=== PATIENT | female | born 2000 | race Caucasian/White ===

== ENCOUNTER 2021-05-04 18:09 | Emergency (ER) | payer OTHER ==
[2021-05-04 18:14] VITALS: BMI 20.5
[2021-05-04 19:05] VITALS: BP 97/53; PULSE 72; TEMP 98.1
== END 2021-05-04 20:00 | disposition home or self-care (01) ==
LOC: JER 18:09 → JERFT 18:09 → JER 20:00
DX: Z04.1 Encounter for examination and observation following transport accident (principal); V89.9XXA Person injured in unspecified vehicle accident, initial encounter; Y92.9 Unspecified place or not applicable
CPT/HCPCS: 99282-25

== ENCOUNTER 2021-08-26 13:38 | Emergency (ER) | payer OTHER ==
[2021-08-26 13:51] VITALS: BP 114/76; PULSE 120; TEMP 99.2; BMI 30.5
[2021-08-26] MEDS ORDERED: diphenhydrAMINE HCL 25 MG CAPSULE (FP) PO ONE ×2 (14:49→14:55)
[2021-08-29 03:07] LABS: SARS-CoV-2 NAA Detected (Not Detected)
== END 2021-08-26 15:15 | disposition home or self-care (01) ==
LOC: JERFT 13:38
DX: O26.893 Other specified pregnancy related conditions, third trimester (principal); R05.9 Cough, unspecified; R21 Rash and other nonspecific skin eruption; Z3A.37 37 weeks gestation of pregnancy
CPT/HCPCS: 87804; 99283-25; C9803; U0003; U0005

== ENCOUNTER 2021-09-11 04:35 | Inpatient (IN) | payer OTHER ==
[2021-09-11 07:05] VITALS: BMI 30.9
[2021-09-11 07:13] LABS: BASO % 0.3 % (0-2.0); EOS % 0.9 % (0-4.5); HEMOGLOBIN 12.2 GM/dL (10.7-15.3); LYMPH % 13.3 % (8-40); MCH 27.5 pg (25.7-33.7); MCHC 32.9 g/dl (32.0-36.0); MEAN CELL VOLUME 83.7 fl (80-96); MEAN PLT VOLUME 9.4 fl (7.5-11.1); MONO % 6.5 % (3.8-10.2); PLATELET COUNT 194 10^3/uL (134-434); RBC 4.42 M/mm3 (3.60-5.2); WHITE BLOOD COUNT 10.6 K/mm3 (4.0-10.0)
[2021-09-11 07:28] LABS: INR 0.99 (0.83-1.09); PROTHROMBIN TIME (PATIENT) 11.4 SEC (9.7-13.0)
[2021-09-11 07:31] LABS: ACTIVATED PTT 29.3 SECONDS (25.2-36.5)
[2021-09-11 07:41] LABS: BLOOD UREA NITROGEN 9.5 mg/dL (7-18); CALCIUM 8.8 mg/dL (8.5-10.1)
[2021-09-11 07:45] LABS: CREATININE 0.4 mg/dL (0.55-1.3)
[2021-09-11] MEDS ORDERED: BUTORPHANOL TARTRATE 2 MG/ML VIAL IVPB ONE (07:50)
[2021-09-11] MEDS ORDERED: DEXTROSE 5%-LACTATED RINGERS 1,000 ML IV SCH (07:50)
[2021-09-11] MEDS ORDERED: BUTORPHANOL TARTRATE 2 MG/ML VIAL ONE (08:04)
[2021-09-11] MEDS ORDERED: PROMETHAZINE HCL 25 MG/1 ML VIAL ONE (08:04)
[2021-09-11] MEDS ORDERED: PROMETHAZINE HCL 25 MG/1 ML VIAL IVPB ONE (09:15)
[2021-09-11] MEDS ORDERED: OXYTOCIN 30 UNITS in 0.9% NS 30 UNIT/500 ML INFUS.BAG IVPB ONE (11:42)
[2021-09-11] MEDS: OXYTOCIN 30 UNITS in 0.9% NS 30 UNIT/500 ML INFUS.BAG IVPB SCH (11:55)
[2021-09-11] MEDS ORDERED: PCA PUMP NR ONE ×2 (12:29→18:16)
[2021-09-11] MEDS ORDERED: FENTANYL/BUPIVACAINE/NS/PF - PCEA - 50 ML DISP.SYRIN EP ONE ×2 (12:30→16:15)
[2021-09-11] MEDS: FENTANYL/BUPIVACAINE/NS/PF - PCEA - 50 ML DISP.SYRIN EP SCH ×2 (12:46→16:22)
[2021-09-11 12:57] LABS: HIV INTERPRETATION NEGATIVE (NEGATIVE)
[2021-09-11 13:04] LABS: SYPHILIS W/ RPR CONF NON-REACTIVE (NONREACTIVE)
[2021-09-11] MEDS ORDERED: NALOXONE HCL 0.4 MG/ML VIAL IVPUSH PRN (13:07)
[2021-09-11] MEDS ORDERED: FENTANYL/BUPIVACAINE/NS/PF - PCEA - 50 ML DISP.SYRIN EP SCH (14:07)
[2021-09-11] MEDS ORDERED: BUPIVACAINE HCL/PF 0.25% (2.5MG/ML) 10 ML VIAL ONE (16:11)
[2021-09-11] MEDS ORDERED: LIDOCAINE HCL 1% PRESERVATIVE FREE - 30ML VIAL ONE (16:51)
[2021-09-11] MEDS ORDERED: BISACODYL 10 MG SUPP.RECT RC PRN (18:11)
[2021-09-11] MEDS ORDERED: IBUPROFEN 600 MG TABLET (FP) PO PRN (18:11)
[2021-09-11] MEDS ORDERED: BENZOCAINE 28 GM HEMORRHOIDAL OINTMENT TP PRN (18:11)
[2021-09-11] MEDS ORDERED: METHYLERGONOVINE MALEATE 0.2 MG/1 ML AMP IM PRN (18:11)
[2021-09-11] MEDS ORDERED: oxyCODONE HCL 5 MG TABLET PO PRN (18:11)
[2021-09-11] MEDS ORDERED: WITCH HAZEL 50% (TUCKS) 40 PAD/JAR PAD TP PRN (18:11)
[2021-09-11] MEDS ORDERED: BENZOCAINE 20% 57 GM BOTTLE TP PRN (18:11)
[2021-09-11] MEDS ORDERED: ACETAMINOPHEN 325 MG TABLET (FP) PO PRN (18:11)
[2021-09-11] MEDS ORDERED: OXYTOCIN 20 UNITS in 0.9% NS 20 UNIT/1,000 ML INFUS.BAG IV SCH (18:15)
[2021-09-11] MEDS ORDERED: ACETAMINOPHEN 325 MG TABLET (FP) ONE ×2 (20:28→20:29)
[2021-09-12 08:28] LABS: BASO % 0.4 % (0-2.0); EOS % 0.3 % (0-4.5); HEMATOCRIT 27.4 % (32.4-45.2); HEMOGLOBIN 8.7 GM/dL (10.7-15.3); LYMPH % 11.4 % (8-40); MCH 26.8 pg (25.7-33.7); MCHC 31.7 g/dl (32.0-36.0); MEAN CELL VOLUME 84.5 fl (80-96); MEAN PLT VOLUME 8.9 fl (7.5-11.1); MONO % 6.5 % (3.8-10.2); NEUT % 81.4 % (42.8-82.8); PLATELET COUNT 153 10^3/uL (134-434); RBC 3.24 M/mm3 (3.60-5.2); RDW 18.8 % (11.6-15.6); WHITE BLOOD COUNT 14.2 K/mm3 (4.0-10.0)
[2021-09-12] MEDS ORDERED: SENNOSIDES/DOCUSATE COMBO (SENNA PLUS) TABLET (UD) PO PRN (22:00)
[2021-09-13 10:42] VITALS: BP 121/74; PULSE 112; TEMP 98.3
== END 2021-09-13 13:25 | disposition home or self-care (01) | DRG 560 ==
LOC: JDEL 04:35 → JLDR 05:35 → J3W 20:50
PROVIDERS: ADMIT Obstetrics & Gynecology; ATTEND Obstetrics & Gynecology
PROC: 0HQ9XZZ Repair Perineum Skin, External Approach (ICD-10-PCS; principal; 2021-09-11)
PROC: 10907ZC Drainage of Amniotic Fluid, Therapeutic from Products of Conception, Via Natural or Artificial Opening (ICD-10-PCS; 2021-09-11)
PROC: 10E0XZZ Delivery of Products of Conception, External Approach (ICD-10-PCS; 2021-09-11)
DX: O70.0 First degree perineal laceration during delivery (principal); Z3A.39 39 weeks gestation of pregnancy; Z37.0 Single live birth
CPT/HCPCS: 36415; 59025; 59409; 80048; 85025; 85610; 85730; 86780; 86850; 86900; 86901; 87389; C9803-CS; G0463-25; U0003; U0005

== ENCOUNTER 2024-06-12 13:14 | Emergency (ER) | payer OTHER ==
[2024-06-12 13:19] VITALS: BP 127/87; PULSE 105; RESP 22; TEMP 98.4; BMI 29.2
[2024-06-12] MEDS: ACETAMINOPHEN 500 MG TABLET (FP) PO ONE (13:46)
[2024-06-12] MEDS ORDERED: ACETAMINOPHEN 500 MG TABLET (FP) ONE (13:47)
[2024-06-12] MEDS: DIPHTH,PERTUSS(ACELL),TET 0.5 ML DISP.SYRIN IM ONE (14:41)
[2024-06-12] MEDS ORDERED: DIPHTH,PERTUSS(ACELL),TET 0.5 ML DISP.SYRIN IM ONE (14:42)
== END 2024-06-12 14:59 | disposition home or self-care (01) ==
LOC: JERFT 13:14
PROC: 0HQGXZZ Repair Left Hand Skin, External Approach (ICD-10-PCS; principal; 2024-06-12)
PROC: 3E0234Z Introduction of Serum, Toxoid and Vaccine into Muscle, Percutaneous Approach (ICD-10-PCS; 2024-06-12)
DX: S61.412A Laceration without foreign body of left hand, initial encounter (principal); W26.0XXA Contact with knife, initial encounter; Y92.009 Unspecified place in unspecified non-institutional (private) residence as the place of occurrence of the external cause
CPT/HCPCS: 12011-25; 90471; 90715; 99283-25

== ENCOUNTER 2024-08-06 18:19 | Emergency (ER) | payer OTHER ==
[2024-08-06 18:25] VITALS: BP 111/67; PULSE 72; RESP 18; TEMP 98.5; BMI 31.1
[2024-08-06] MEDS ORDERED: IBUPROFEN 600 MG TABLET (FP) PO ONE (19:47)
[2024-08-06] MEDS: IBUPROFEN 600 MG TABLET (FP) PO ONE (20:10)
== END 2024-08-06 21:59 | disposition home or self-care (01) ==
LOC: JERFT 18:19 → JER 18:19 → JERFT 21:59
DX: S93.602A Unspecified sprain of left foot, initial encounter (principal); W08.XXXA Fall from other furniture, initial encounter
CPT/HCPCS: 73630-TC-LT; 84703; 99284-25